=== PATIENT | male | born 1950 | race American Indian/Alaskan Native ===

== ENCOUNTER 2021-01-30 10:18 | Inpatient (IN) | payer MEDICARE ==
--- NOTE | 2021-01-31 08:44 | History and Physical Report ---
GP History & Physical - History of Present Illness Date of admission: 01/30/21 Date of Examination: 01/31/21 Reason for Admission: Danger to self History of Present Illness: Per ER Note: Present to ER for intentional overdose eight of Unisom 25 mg. Pt reports he has lost quiet a few friends lately and has not been able to sleep for four days. Poison Control was contacted and they recommend observation for 6 hours. During my interview with 71y/o Junior Smith, he is lying in bed he is slightly irritable. He never opens his eyes to look at me. The patient states he was brought to the hospital for overdose. He says he doesn't want to live. He verbalizes anxiety and "feels like I want to crack up." He is asking if he can sign himself out. He says "I don't feel like doing that group." The patient denies hallucinations. The patient denies any illicit drug use or alcohol. He says he smokes a ppd of cigarets. Psychiatric History Diagnoses: Depression Suicidal attempts: Denies Psych admissions: Yes Medications tried: Could not recall Substance abuse: Denies Outpatient care: yes Medical history: None reported Family psych history: None reported Social History Marital status: Living arrangements: Alone Highest education: high school Legal history: Denies Employment status: Disabled REVIEW OF SYSTEMS Constitutional: Negative for weight loss ENT: Negative for stridor Respiratory: Negative for cough or hemoptysis All other systems reviewed and are negative MENTAL STATUS EXAMINATION General Appearance and Behavior: Age appropriate, good hygiene, wearing appropriate clothes,poor eye contact, very anxious Cooperation: Participating/engaged, but Guarded Psychomotor Behavior: Psychomotor normal Mood: "anxious, feels like I'm cracking up" Affect and affective range: congruent with mood. Thought Process: Goal directed Thought Content: hopelessness, helplessness, SI Speech: Normal rate, volume and rhythm Suicidal Ideation: Yes Homicidal Ideation: Denies Hallucinations: Denies Delusions: None elicited Impulse Control: Impaired Insight and Judgment: Limited insight and judgment Memory: Normal Attention: Normal Orientation: Alert, oriented. Assessment and Plan (1)Major Depressive Disorder (2) Generalized Anxiety Disorder Current Visit: Yes Status: Acute Treatment Plan Patient admitted for inpatient psychiatric evaluation, medication adjustment and close monitoring The patient's behavior, mood, sleep and appetite will be closely monitored. Patient enrolled in individual and group therapeutic sessions and encouraged to attend. Patient provided with a safe and structured environment. Patient's physical health needs will be addressed by the Hospitalist. Hospitalist Consulted Labs including CBC, CMP, Lipid profile and Hemoglobin A1C levels ordered for baseline reference Social Assessment will be completed and the Computer Technology Trainer will work with patient and family to ensure a suitable and safe disposition Medication adjustment will be made as clinically indicated Continued home medications Started Depakote DR 125mg po BID Started Vistaril 25mg po BID Started Trazodone 50mg po qhs Usual Wellness Sikhism/Preservation: - Start Trazodone 50 mg po QHS & 50 mg po QHS PRN between 10 PM & 2 AM for insomnia - Start Melatonin 5 mg po QHS to promote circadian rhythm - Start [place]-3 for brain health, reduce impulsivity, and as adjunctive treatment for mood disorder, continue upon discharge given overall benefits. - Start B1 prophylaxis with 200 mg po for 5 days The patient agreed on the treatment plan, understood the risk, benefit, alternative treatment, potential consequence of no treatment, and gave informed consent. Estimated days: 7 Post hospital care: primary care provider, psychiatric provider Legal Status: Voluntary Reaction to Hospitalization: Accepting Medications and Allergies Allergies Allergy/AdvReac Type Severity Reaction Status Date / Time aspirin Allergy Unknown Unverified 01/30/21 10:43 Penicillins Allergy Unknown Unverified 01/30/21 10:44 Home Medications Medication Instructions Recorded Confirmed Last Taken Type Melatonin [Melatonin 5MG CAP] 5 mg PO QHS 01/30/21 01/30/21 Unknown History OLANZapine [Zyprexa] 5 mg PO DAILY 01/30/21 01/30/21 Unknown History OLANzapine [Zyprexa] 10 mg PO QHS 01/30/21 01/30/21 Unknown History Results - Results Labs/Vitals: Laboratory Last Values POC Glucose 127 mg/dL (70-105) H 01/31/21 01:16 Last Vital Signs Temp 98.3 F 01/30/21 23:44 Pulse 84 01/30/21 23:44 Resp 18 01/30/21 23:44 BP 121/87 01/30/21 23:44 Pulse Ox 99 01/30/21 23:44 Physical Examination - Constitutional Vitals: Vital Signs Temp Pulse Resp BP Pulse Ox 98.3 F 84 18 121/87 99 01/30/21 23:44 01/30/21 23:44 01/30/21 23:44 01/30/21 23:44 01/30/21 23:44 Temperature -Last 24 Hours Temperature 98.3 F Mental Status Exam - Vital signs Last Vital Signs Temp 98.3 F 01/30/21 23:44 Pulse 84 01/30/21 23:44 Resp 18 01/30/21 23:44 BP 121/87 01/30/21 23:44 Pulse Ox 99 01/30/21 23:44 Physician Certification - Certification Statement Physician Certification Statement: This is an acknowledgement statement that JUNIOR TRAVON HARTMAN is a 71 year old M who requires inpatient psychiatric admission for treatment which could reasonably be expected to improve the patient's condition for Estimated period of time patient will need to remain in the hospital: [ ] Plan for post-hospital care: [ ]
[2021-01-31] MEDS: hydrOXYzine PAMOATE 25 MG CAP PO SCH ×2 (10:03→21:43)
[2021-01-31] MEDS: DIVALPROEX DR 125 MG TAB PO SCH ×2 (10:03→21:43)
--- NOTE | 2021-01-31 20:43 | Consultation ---
History of Present Illness - Reason for Consult Consult date: 01/31/21 Medical management Requesting physician: JOSE STALLWORTH - History of Present Illness 71 YO Male with Obesity, Vascular Dementia with Behavioral Disturbance, Cerebral Atherosclerosis, HTN, HLD, Hypothyroidism, DM, NATALI, Depression admitted to [facility] for Psychiatric Stabilization. Consult placed by Dr. Stallworth for medical management. Patient seen and evaluated in the recreation room. Patient resting comfortably and denies complaints. Patient denies fever, chills, chest pain, palpitation, productive cough, skin rash, recent ill contacts, or known exposure to COVID-19. No reported nursing events. Patient cooperative with exam and interview. Past History Past Medical History: diabetes, hypertension, hyperlipidemia, hypothyroidism Past Surgical History: No surgical history, Other (Reviewed) Social history: . denies: smoking, alcohol abuse, prescription drug abuse Family history: diabetes, hypertension Medications and Allergies Allergies Allergy/AdvReac Type Severity Reaction Status Date / Time aspirin Allergy Unknown Unverified 01/30/21 10:43 Penicillins Allergy Unknown Unverified 01/30/21 10:44 Home Medications Medication Instructions Recorded Confirmed Last Taken Type Melatonin [Melatonin 5MG CAP] 5 mg PO QHS 01/30/21 01/30/21 Unknown History OLANZapine [Zyprexa] 5 mg PO DAILY 01/30/21 01/30/21 Unknown History OLANzapine [Zyprexa] 10 mg PO QHS 01/30/21 01/30/21 Unknown History Active Meds: Active Medications Divalproex Sodium (Divalproex Dr 125 Mg Tab) 125 mg PO BID [facility] Last Admin: 01/31/21 10:03 Dose: 125 mg Documented by: Hydroxyzine Pamoate (Hydroxyzine Pamoate 25 Mg Cap) 25 mg PO BID [facility] Last Admin: 01/31/21 10:03 Dose: 25 mg Documented by: Melatonin (Melatonin 5 Mg Tab) 5 mg PO QHS [facility] Olanzapine (Olanzapine 10 Mg Tab) 10 mg PO QHS [facility] Olanzapine (Olanzapine 5 Mg Tab) 5 mg PO DAILY [facility] Last Admin: 01/31/21 10:03 Dose: 5 mg Documented by: Trazodone HCl (Trazodone 50 Mg Tab) 50 mg PO QHS [facility] Review of Systems Constitutional: no weight loss, no weight gain, no fever, no chills Ears, nose, mouth and throat: no ear pain, no ear discharge, no tinnitis, no decreased hearing, no nose pain Cardiovascular: no chest pain, no orthopnea, no rapid/irregular heart beat, no edema, no syncope Respiratory: no cough, no cough with sputum, no excessive sputum, no hemoptysis, no shortness of breath Gastrointestinal: no abdominal pain, no nausea, no vomiting, no diarrhea, no constipation Genitourinary Male: no hematuria, no flank pain, no discharge, no urinary frequency, no urinary hesitancy Rectal: no pain, no incontinence, no bleeding Musculoskeletal: no neck stiffness, no neck pain, no shooting arm pain, no low back pain, no shooting leg pain Integumentary: no rash, no pruritis, no sores, no wounds, no jaundice Neurological: no head injury, no paralysis, no weakness, no numbness, no tingling, no seizures, no syncope Psychiatric: no anxiety, no memory loss, no change in sleep habits, no insomnia, no hypersomnia, no change in appetite Endocrine: no cold intolerance, no polyphagia, no excessive thirst, no polydipsia, no polyuria, no excessive sweating Hematologic/Lymphatic: no easy bruising, no easy bleeding, no lymphadenopathy, no lymphedema Allergic/Immunologic: no urticaria, no wheezing, no anaphylaxis Exam - Constitutional Vitals: Temp Pulse Resp BP Pulse Ox 98.0 F 68 16 124/78 99 01/31/21 12:02 01/31/21 12:02 01/31/21 12:02 01/31/21 12:02 01/31/21 12:02 General appearance: Present: no acute distress, obese - EENT Eyes: Present: PERRL ENT: hearing intact, clear oral mucosa - Neck Neck: Present: supple, normal ROM - Respiratory Respiratory effort: normal Respiratory: bilateral: CTA - Cardiovascular Heart Sounds: Present: S1 & S2. Absent: rub, click - Extremities Extremities: pulses symmetrical, No edema Peripheral Pulses: within normal limits - Abdominal General gastrointestinal: Present: soft, non-tender, non-distended, normal bowel sounds Male genitourinary: Present: normal - Integumentary Integumentary: Present: clear, warm, dry - Musculoskeletal Musculoskeletal: gait normal, strength equal bilaterally - Psychiatric Psychiatric: appropriate mood/affect, intact judgment & insight, agitated - Neurologic Neurologic: CNII-XII intact, moves all extremities Results - Labs Labs: Abnormal lab results 01/31/21 Range/Units 01:16 POC Glucose 127 H (70-105) mg/dL Assessment and Plan - Patient Problems (1) Hypertension Current Visit: Yes Status: Acute Qualifiers: Hypertension type: essential hypertension Qualified Code(s): I10 - Essenti al (primary) hypertension Plan to address problem: Monitor blood pressure every shift, continue medical management. Patient normotensive at this time. (2) Hyperlipidemia Current Visit: Yes Status: Acute Qualifiers: Hyperlipidemia type: mixed hyperlipidemia Qualified Code(s): E78.2 - Mixed hyperlipidemia Plan to address problem: Low-cholesterol diet, supportive care, risk factor reduction. (3) Hypothyroidism Current Visit: Yes Status: Acute Qualifiers: Hypothyroidism type: unspecified Qualified Code(s): E03.9 - Hypothyroidism, unspecified Plan to address problem: Continue to monitor, follow-up with primary care physician at discharge. (4) Vascular dementia with behavioral disturbance Current Visit: Yes Status: Acute Plan to address problem: Verbal prompting, verbal redirection, benzodiazepine therapy as clinically indicated. (5) Cerebral atherosclerosis Current Visit: Yes Status: Acute Plan to address problem: Risk factor reduction therapy, antiplatelet therapy as clinically indicated.
[2021-01-31] MEDS: traZODone 50 MG TAB PO SCH (21:43)
[2021-01-31] MEDS: MELATONIN 5 MG TAB PO SCH (21:44)
[2021-01-31] MEDS ORDERED: NON-FORMULARY EACH (Melatonin [Melatonin 5mg Cap] 5 MG Capsule) PO SCH (22:00)
--- NOTE | 2021-02-01 08:48 | Progress Note ---
Subjective Date of service: 02/01/21 Principal diagnosis: MDD Subjective Comment: The patient was seen today. He is irritable and says he wants to sign out. The patient denies hallucinations, but verbalizes suicidal thoughts at times then says "it's because I want to get out of here." He verbalizes feeling anxious. REVIEW OF SYSTEMS Constitutional: Negative for weight loss ENT: Negative for stridor Respiratory: Negative for cough or hemoptysis All other systems reviewed and are negative MENTAL STATUS EXAMINATION General Appearance and Behavior: Age appropriate, good hygiene, wearing appropriate clothes, poor eye contact, very anxious Cooperation: Participating/engaged, but Guarded Psychomotor Behavior: Psychomotor normal Mood: "anxious" Affect and affective range: congruent with mood. Thought Process: Goal directed Thought Content: hopelessness, helplessness, SI Speech: Normal rate, volume and rhythm Suicidal Ideation: Yes Homicidal Ideation: Denies Hallucinations: Denies Delusions: None elicited Impulse Control: Impaired Insight and Judgment: Limited insight and judgment Memory: Normal Attention: Normal Orientation: Alert, oriented. Assessment and Plan (1)Major Depressive Disorder (2) Generalized Anxiety Disorder Current Visit: Yes Status: Acute Treatment Plan Patient admitted for inpatient psychiatric evaluation, medication adjustment and close monitoring The patient's behavior, mood, sleep and appetite will be closely monitored. Patient enrolled in individual and group therapeutic sessions and encouraged to attend. Patient provided with a safe and structured environment. Patient's physical health needs will be addressed by the Hospitalist. Hospitalist Consulted Labs including CBC, CMP, Lipid profile and Hemoglobin A1C levels ordered for baseline reference Social Assessment will be completed and the Assistant Customer Service Manager will work with patient and family to ensure a suitable and safe disposition Medication adjustment will be made as clinically indicated Increase Depakote DR 250mg po BID Usual Wellness Rastafari/Preservation: - Start Trazodone 50 mg po QHS & 50 mg po QHS PRN between 10 PM & 2 AM for insomnia - Start Melatonin 5 mg po QHS to promote circadian rhythm - Start [place]-3 for brain health, reduce impulsivity, and as adjunctive treatment for mood disorder, continue upon discharge given overall benefits. - Start B1 prophylaxis with 200 mg po for 5 days The patient agreed on the treatment plan, understood the risk, benefit, alternative treatment, potential consequence of no treatment, and gave informed consent. Estimated days: 5 Post hospital care: primary care provider, psychiatric provider Medications and Allergies Allergies Allergy/AdvReac Type Severity Reaction Status Date / Time aspirin Allergy Unknown Unverified 01/30/21 10:43 Penicillins Allergy Unknown Unverified 01/30/21 10:44 Home Medications Medication Instructions Recorded Confirmed Last Taken Type Melatonin [Melatonin 5MG CAP] 5 mg PO QHS 01/30/21 01/30/21 Unknown History OLANZapine [Zyprexa] 5 mg PO DAILY 01/30/21 01/30/21 Unknown History OLANzapine [Zyprexa] 10 mg PO QHS 01/30/21 01/30/21 Unknown History Active Meds: Active Medications Divalproex Sodium (Divalproex Dr 125 Mg Tab) 125 mg PO BID [facility] Last Admin: 01/31/21 21:43 Dose: 125 mg Documented by: Hydroxyzine Pamoate (Hydroxyzine Pamoate 25 Mg Cap) 25 mg PO BID [facility] Last Admin: 01/31/21 21:43 Dose: 25 mg Documented by: Melatonin (Melatonin 5 Mg Tab) 5 mg PO QHS [facility] Last Admin: 01/31/21 21:44 Dose: 5 mg Documented by: Olanzapine (Olanzapine 10 Mg Tab) 10 mg PO QHS [facility] Last Admin: 01/31/21 21:43 Dose: 10 mg Documented by: Olanzapine (Olanzapine 5 Mg Tab) 5 mg PO DAILY [facility] Last Admin: 01/31/21 10:03 Dose: 5 mg Documented by: [facility]odone HCl ([facility] 50 Mg Tab) [facility] Admin: 01/31/21 21:43 Dose: 50 mg Documented by: Results - Results Labs/Vitals: Laboratory Last Values POC Glucose 100 mg/dL (70-105) 02/01/21 07:30 Last Vital Signs Temp 98.1 F 02/01/21 08:22 Pulse 71 02/01/21 08:22 Resp 20 02/01/21 08:22 BP 103/65 02/01/21 08:22 Pulse Ox 97 02/01/21 08:22
[2021-02-01] MEDS: hydrOXYzine PAMOATE 25 MG CAP PO SCH ×2 (10:39→21:20)
[2021-02-01] MEDS: DIVALPROEX DR 250 MG TAB PO SCH ×2 (10:39→21:20)
[2021-02-01] MEDS: NICOTINE 21 MG/24 HR PATCH TD SCH (13:45)
--- NOTE | 2021-02-01 20:04 | Progress Note ---
Assessment and Plan - Patient Problems (1) Vascular dementia with behavioral disturbance Current Visit: Yes Status: Acute Plan to address problem: Verbal prompting, verbal redirection, benzodiazepine therapy as clinically indicated. (2) Hypertension Current Visit: Yes Status: Acute Qualifiers: Hypertension type: essential hypertension Qualified Code(s): I10 - Essential (primary) hypertension Plan to address problem: Monitor blood pressure every shift, continue medical management. Patient nor motensive at this time. (3) Hyperlipidemia Current Visit: Yes Status: Acute Qualifiers: Hyperlipidemia type: mixed hyperlipidemia Qualified Code(s): E78.2 - Mixed hyperlipidemia Plan to address problem: Low-cholesterol diet, supportive care, risk factor reduction. (4) Hypothyroidism Current Visit: Yes Status: Acute Qualifiers: Hypothyroidism type: unspecified Qualified Code(s): E03.9 - Hypothyroidism, unspecified Plan to address problem: Continue to monitor, follow-up with primary care physician at discharge. (5) Cerebral atherosclerosis Current Visit: Yes Status: Acute Plan to address problem: Risk factor reduction therapy, antiplatelet therapy as clinically indicated. History Interval history: 71 YO Male with Obesity, Vascular Dementia with Behavioral Disturbance, Cerebral Atherosclerosis, HTN, HLD, Hypothyroidism, DM, NATALI, Depression admitted to [facility] for Psychiatric Stabilization. Patient seen and evaluated in the recreation room. Patient resting comfortably and denies complaints. No reported nursing events. Patient cooperative with exam and interview. Hospitalist Physical - Constitutional Vitals: Temp Pulse Resp BP Pulse Ox 98.1 F 71 20 103/65 97 02/01/21 08:22 02/01/21 08:22 02/01/21 08:22 02/01/21 08:22 02/01/21 08:22 General appearance: Present: no acute distress, obese - EENT Eyes: Present: PERRL, EOM intact ENT: hearing intact - Neck Neck: Present: supple - Respiratory Respiratory effort: normal Respiratory: bilateral: CTA - Cardiovascular Rhythm: regular Heart Sounds: Present: S1 & S2 - Extremities Extremities: no ischemia Peripheral Pulses: within normal limits - Abdominal General gastrointestinal: soft, non-tender, non-distended - Integumentary Integumentary: Present: clear, dry - Psychiatric Psychiatric: cooperative - Neurologic Neurologic: CNII-XII intact Results - Labs Labs: Laboratory Last Values POC Glucose 178 mg/dL (70-105) H 02/01/21 16:13 Gutierrez/IV: Voiding Method Toilet Active Medications - Current Medications Current Medications: Generic Name Dose Route Start Last Admin Trade Name Rene PRN Reason Stop Dose Admin Divalproex Sodium 250 mg 02/01/21 10:00 02/01/21 10:[address] 250 Mg Tab PO 250 mg BID OMAYRA Administration Hydroxyzine Pamoate 25 mg 01/31/21 10:00 02/01/21 10:39 Hydroxyzine Pamoate 25 Mg Cap PO 25 mg BID OMAY[facility] Administration Melatonin 5 mg 01/31/21 22:00 01/31/21 21:44 Melatonin 5 Mg Tab PO 5 mg QHS OMAYRA Administration Nicotine 21 mg 02/01/21 13:00 02/01/21 13:45 Nicotine 21 Mg/24 Hr Patch TD 21 mg QDAY OMAYRA Administration Olanzapine 10 mg 01/31/21 22:00 01/31/21 21:43 Olanzapine 10 Mg Tab PO 10 mg QHS OMAYRA Administration Olanzapine 5 mg 01/31/21 10:00 02/01/21 10:39 Olanzapine 5 Mg Tab PO 5 mg DAILY OMAYRA Administration Trazodone HCl 50 mg 01/31/21 22:00 01/31/21 21:43 Trazodone 50 Mg Tab PO 50 mg QHS OMAYRA Administration
[2021-02-01] MEDS: traZODone 50 MG TAB PO SCH (21:20)
[2021-02-01] MEDS: MELATONIN 5 MG TAB PO SCH (21:20)
[2021-02-02 06:03] LABS: Basophils # (Auto) 0.1 K/mm3 (0.0-0.1); Basophils % (Auto) 0.7 % (0.0-1.8); Eosinophils # (Auto) 0.2 K/mm3 (0.0-0.4); Eosinophils % (Auto) 2.4 % (0.0-4.3); Hematocrit 35.8 % (35.5-45.6); Hemoglobin 12.1 gm/dl (11.8-15.2); Lymphocytes # (Auto) 2.2 K/mm3 (1.2-5.4); Lymphocytes % (Auto) 24.3 % (13.4-35.0); Mean Corpuscular HGB Conc 34 % (32-34); Mean Corpuscular Volume 85 fl (84-94); Monocytes # (Auto) 0.8 K/mm3 (0.0-0.8); Platelet Count 264 K/mm3 (140-440); Red Cell Distribution Width 13.3 % (13.2-15.2)
[2021-02-02 06:22] LABS: Alanine Aminotransferase 19 units/L (7-56); Albumin 3.8 g/dL (3.9-5); BUN/Creatinine Ratio 16; Blood Urea Nitrogen 14 mg/dL (9-20); Calcium 9.3 mg/dL (8.4-10.2); Chol/HDL Ratio 5.71 %; HDL Cholesterol 28 mg/dL (40-59); Hemolysis Index 5; LDL Cholesterol,Direct 111 mg/dL (50-130)
--- NOTE | 2021-02-02 08:02 | Progress Note ---
Subjective Date of service: 02/02/21 Principal diagnosis: MDD Subjective Comment: Per ED Note: Patient was awake and complaining of restlessness. He states he thinks it is his medication and he states he is not going to take it. He was awake asking for snacks until 2 am. He slept continually 4 hours. The patient was seen today. He is irritable and says he want's to lay down. The patient says "I don't feel too good." He says "I didn't get any sleep last night. My mind was racing." The patient denies SI/HI, but states he feels like he's "cracking up." He says "I feel up and down." When asking the patient did he mean his mood, he replied "like I'm up and down, anxious or something. I think it might be the medication." REVIEW OF SYSTEMS Constitutional: Negative for weight loss ENT: Negative for stridor Respiratory: Negative for cough or hemoptysis All other systems reviewed and are negative MENTAL STATUS EXAMINATION General Appearance and Behavior: Age appropriate, good hygiene, wearing appropriate clothes, poor eye contact, very anxious Cooperation: Participating/engaged, but Guarded Psychomotor Behavior: Psychomotor normal Mood: "anxious, up and down, cracking up" Affect and affective range: congruent with mood, irritable Thought Process: Goal directed Thought Content: none Speech: Normal rate, volume and rhythm Suicidal Ideation: Denies Homicidal Ideation: Denies Hallucinations: Denies Delusions: None elicited Impulse Control: Impaired Insight and Judgment: Limited insight and judgment Memory: Normal Attention: Normal Orientation: Alert, oriented. Assessment and Plan (1)Major Depressive Disorder (2) Generalized Anxiety Disorder Current Visit: Yes Status: Acute Treatment Plan Patient admitted for inpatient psychiatric evaluation, medication adjustment and close monitoring The patient's behavior, mood, sleep and appetite will be closely monitored. Patient enrolled in individual and group therapeutic sessions and encouraged to attend. Patient provided with a safe and structured environment. Patient's physical health needs will be addressed by the Hospitalist. Bertrand solorzano Consulted Labs including CBC, CMP, Lipid profile and Hemoglobin A1C levels ordered for baseline reference Social Assessment will be completed and the Plastics Nurse will work with patient and family to ensure a suitable and safe disposition Medication adjustment will be made as clinically indicated Decrease Depakote DR 125mg po BID (the patient feels like he's having SE from it) Increase home Olanzapine 10mg po BID Increase Trazodone 100mg po qhs Increased Vistaril 50mg p BID Usual Wellness Hinduism/Preservation: - Start Trazodone 50 mg po QHS & 50 mg po QHS PRN between 10 PM & 2 AM for insomnia - Start Melatonin 5 mg po QHS to promote circadian rhythm - Start [place]-3 for brain health, reduce impulsivity, and as adjunctive treatment for mood disorder, continue upon discharge given overall benefits. - Start B1 prophylaxis with 200 mg po for 5 days The patient agreed on the treatment plan, understood the risk, benefit, alternative treatment, potential consequence of no treatment, and gave informed consent. Estimated days: 5 Post hospital care: primary care provider, psychiatric provider Medications and Allergies Allergies Allergy/AdvReac Type Severity Reaction Status Date / Time aspirin Allergy Unknown Unverified 01/30/21 10:43 Penicillins Allergy Unknown Unverified 01/30/21 10:44 Home Medications Medication Instructions Recorded Confirmed Last Taken Type Melatonin [Melatonin 5MG CAP] 5 mg PO QHS 01/30/21 01/30/21 Unknown History OLANZapine [Zyprexa] 5 mg PO DAILY 01/30/21 01/30/21 Unknown History OLANzapine [Zyprexa] 10 mg PO QHS 01/30/21 01/30/21 Unknown History Active Meds: Active Medications Divalproex Sodium (Divalproex Dr 250 Mg Tab) 250 mg PO BID [facility] Last Admin: 02/01/21 21:20 Dose: 250 mg Documented by: Hydroxyzine Pamoate (Hydroxyzine Pamoate 25 Mg Cap) 25 mg PO BID [facility] Last Admin: 02/01/21 21:20 Dose: 25 mg Documented by: Melatonin (Melatonin 5 Mg Tab) 5 mg PO QHS [facility] Last Admin: 02/01/21 21:20 Dose: 5 mg Documented by: Nicotine (Nicotine 21 Mg/24 Hr Patch) 21 mg TD QDAY [facility] Last Admin: 02/01/21 13:45 Dose: 21 mg Documented by: Olanzapine (Olanzapine 10 Mg Tab) 10 mg PO QHS [facility] Last Admin: 02/01/21 21:20 Dose: 10 mg Documented by: Olanzapine (Olanzapine 5 Mg Tab) 5 mg PO DAILY [facility] Last Admin: 02/01/21 10:39 Dose: 5 mg Documented by: Trazodone HCl (Trazodone 50 Mg Tab) 50 mg PO QHS [facility] Last Admin: 02/01/21 21:20 Dose: 50 mg Documented by: Results - Results Labs/Vitals: Laboratory Last Values WBC 8.9 K/mm3 (4.5-11.0) 02/02/21 05:33 RBC 4.20 M/mm3 (3.65-5.03) 02/02/21 05:33 Hgb 12.1 gm/dl (11.8-15.2) 02/02/21 05:33 Hct 35.8 % (35.5-45.6) 02/02/21 05:33 MCV 85 fl (84-94) 02/02/21 05:33 MCH 29 pg (28-32) 02/02/21 05:33 MCHC 34 % (32-34) 02/02/21 05:33 RDW 13.3 % (13.2-15.2) 02/02/21 05:33 Plt Count 264 K/mm3 (140-440) 02/02/21 05:33 Lymph % (Auto) 24.3 % (13.4-35.0) 02/02/21 05:33 [place] % (Auto) 9.0 % (0.0-7.3) H 02/02/21 05:33 Eos % (Auto) 2.4 % (0.0-4.3) 02/02/21 05:33 Baso % (Auto) 0.7 % (0.0-1.8) 02/02/21 05:33 Lymph # (Auto) 2.2 K/mm3 (1.2-5.4) 02/02/21 05:33 [place] # (Auto) 0.8 K/mm3 (0.0-0.8) 02/02/21 05:33 Eos # (Auto) 0.2 K/mm3 (0.0-0.4) 02/02/21 05:33 Baso # (Auto) 0.1 K/mm3 (0.0-0.1) 02/02/21 05:33 Seg Neutrophils % 63.6 % (40.0-70.0) 02/02/21 05:33 Seg Neutrophils # 5.7 K/mm3 (1.8-7.7) 02/02/21 05:33 Sodium 134 mmol/L (137-145) L 02/02/21 05:33 Potassium 4.2 mmol/L (3.6-5.0) 02/02/21 05:33 Chloride 101.0 mmol/L (98-107) 02/02/21 05:33 Carbon Dioxide 25 mmol/L (22-30) 02/02/21 05:33 Anion Gap 12 mmol/L 02/02/21 05:33 BUN 14 mg/dL (9-20) 02/02/21 05:33 Creatinine 0.9 mg/dL (0.8-1.3) 02/02/21 05:33 Estimated GFR > 60 ml/min 02/02/21 05:33 BUN/Creatinine Ratio 16 % 02/02/21 05:33 Glucose 141 mg/dL (75-100) H 02/02/21 05:33 POC Glucose 116 mg/dL (70-105) H 02/02/21 06:18 Hemoglobin A1c 7.5 % (4-6) H 02/02/21 05:33 Calcium 9.3 mg/dL (8.4-10.2) 02/02/21 05:33 Total Bilirubin < 0.20 mg/dL (0.1-1.2) 02/02/21 05:33 AST 15 units/L (5-40) 02/02/21 05:33 ALT 19 units/L (7-56) 02/02/21 05:33 Alkaline Phosphatase 102 units/L (35-129) 02/02/21 05:33 Total Protein 7.3 g/dL (6.3-8.2) 02/02/21 05:33 Albumin 3.8 g/dL (3.9-5) L 02/02/21 05:33 Albumin/Globulin Ratio 1.1 % 02/02/21 05:33 Triglycerides 256 mg/dL (2-149) H 02/02/21 05:33 Cholesterol 160 mg/dL (50-199) 02/02/21 05:33 LDL Cholesterol Direct 111 mg/dL (50-130) 02/02/21 05:33 HDL Cholesterol 28 mg/dL (40-59) L 02/02/21 05:33 Cholesterol/HDL Ratio 5.71 % 02/02/21 05:33 TSH 1.710 mlU/mL (0.270-4.200) 02/02/21 05:33 Last Vital Signs Temp 98.0 F 02/01/21 22:00 Pulse 79 02/01/21 22:00 Resp 18 02/01/21 22:00 BP 102/64 02/01/21 22:00 Pulse Ox 99 02/01/21 22:00
[2021-02-02] MEDS: DIVALPROEX DR 125 MG TAB PO SCH ×2 (14:15→21:00)
[2021-02-02] MEDS: NICOTINE 21 MG/24 HR PATCH TD SCH (14:15)
[2021-02-02] MEDS: MELATONIN 5 MG TAB PO SCH (21:00)
[2021-02-02] MEDS: traZODone 100 MG TAB PO SCH (21:00)
--- NOTE | 2021-02-03 11:03 | Progress Note ---
Subjective Date of service: 02/03/21 Principal diagnosis: MDD Subjective Comment: Psych Progress Patient seen this a.m., patient reported does not like his medication and does not want to take this medication because every time he takes them, he keeps having a sensation like he is very high, makes him screaming more paranoid. He denies any suicidal ideation, denies any auditory or visual hallucinations but he is seeking pain and Ativan medication. \\ REVIEW OF SYSTEMS Constitutional: Negative for weight loss ENT: Negative for stridor Respiratory: Negative for cough or hemoptysis All other systems reviewed and are negative MENTAL STATUS EXAMINATION General Appearance and Behavior: Age appropriate, good hygiene, wearing appropriate clothes, poor eye contact, very anxious Cooperation: Participating/engaged, but Guarded Psychomotor Behavior: Psychomotor normal Mood: "anxious, up and down, cracking up" Affect and affective range: congruent with mood, irritable Thought Process: Goal directed Thought Content: none Speech: Normal rate, volume and rhythm Suicidal Ideation: Denies Homicidal Ideation: Denies Hallucinations: Denies Delusions: None elicited Impulse Control: Impaired Insight and Judgment: Limited insight and judgment Memory: Normal Attention: Normal Orientation: Alert, oriented. Assessment and Plan (1)Major Depressive Disorder (2) Generalized Anxiety Disorder Current Visit: Yes Status: Acute Treatment Plan Patient admitted for inpatient psychiatric evaluation, medication adjustment and close monitoring The patient's behavior, mood, sleep and appetite will be closely monitored. Patient enrolled in individual and group therapeutic sessions and encouraged to attend. Patient provided with a safe and structured environment. Patient's physical health needs will be addressed by the Hospitalist. Hospitalist Consulted Labs including CBC, CMP, Lipid profile and Hemoglobin A1C levels ordered for baseline reference Social Assessment will be completed and the Poultry Field Service Technician will work with patient and family to ensure a suitable and safe disposition Medication adjustment will be made as clinically indicated Decrease Depakote DR 125mg po BID (the patient feels like he's having SE from it) Olanzapine discontinued Abilify started Increased Vistaril 50mg p BID Usual Wellness Yazidi/Preservation: - Start Trazodone 50 mg po QHS & 50 mg po QHS PRN between 10 PM & 2 AM for insomnia - Start Melatonin 5 mg po QHS to promote circadian rhythm - Start [place]-3 for brain health, reduce impulsivity, and as adjunctive treatment for mood disorder, continue upon discharge given overall benefits. - Start B1 prophylaxis with 200 mg po for 5 days The patient agreed on the treatment plan, understood the risk, benefit, alternative treatment, potential consequence of no treatment, and gave informed consent. Estimated days: 4 Post hospital care: primary care provider, psychiatric provider Medications and Allergies Allergies Allergy/AdvReac Type Severity Reaction Status Date / Time Penicillins Allergy Intermediate Unknown Verified 02/02/21 23:26 aspirin Allergy Mild Unknown Verified 02/02/21 23:26 Home Medications Medication Instructions Recorded Confirmed Last Taken Type Melatonin [Melatonin 5MG CAP] 5 mg PO QHS 01/30/21 01/30/21 Unknown History OLANZapine [Zyprexa] 5 mg PO DAILY 01/30/21 01/30/21 Unknown History OLANzapine [Zyprexa] 10 mg PO QHS 01/30/21 01/30/21 Unknown History Active Meds: Active Medications Divalproex Sodium (Divalproex Dr 125 Mg Tab) 125 mg PO BID [facility] Last Admin: 02/02/21 21:00 Dose: Not Given Documented by: Hydroxyzine Pamoate (Hydroxyzine Pamoate 50 Mg Cap) 50 mg PO BID [facility] Last Admin: 02/02/21 21:00 Dose: Not Given Documented by: Melatonin (Melatonin 5 Mg Tab) 5 mg PO QHS [facility] Last Admin: 02/02/21 21:00 Dose: Not Given Documented by: Nicotine (Nicotine 21 Mg/24 Hr Patch) 21 mg TD QDAY [facility] Last Admin: 02/02/21 14:15 Dose: Not Given Documented by: Olanzapine (Olanzapine 10 Mg Tab) 10 mg PO BID [facility] Last Admin: 02/02/21 21:00 Dose: Not Given Documented by: Trazodone HCl (Trazodone 100 Mg Tab) 100 mg PO QHS [facility] Last Admin: 02/02/21 21:00 Dose: Not Given Documented by: Results - Results Labs/Vitals: Laboratory Last Values WBC 8.9 K/mm3 (4.5-11.0) 02/02/21 05:33 RBC 4.20 M/mm3 (3.65-5.03) 02/02/21 05:33 Hgb 12.1 gm/dl (11.8-15.2) 02/02/21 05:33 Hct 35.8 % (35.5-45.6) 02/02/21 05:33 MCV 85 fl (84-94) 02/02/21 05:33 MCH 29 pg (28-32) 02/02/21 05:33 MCHC 34 % (32-34) 02/02/21 05:33 RDW 13.3 % (13.2-15.2) 02/02/21 05:33 Plt Count 264 K/mm3 (140-440) 02/02/21 05:33 Lymph % (Auto) 24.3 % (13.4-35.0) 02/02/21 05:33 [place] % (Auto) 9.0 % (0.0-7.3) H 02/02/21 05:33 Eos % (Auto) 2.4 % (0.0-4.3) 02/02/21 05:33 Baso % (Auto) 0.7 % (0.0-1.8) 02/02/21 05:33 Lymph # (Auto) 2.2 K/mm3 (1.2-5.4) 02/02/21 05:33 [place] # (Auto) 0.8 K/mm3 (0.0-0.8) 02/02/21 05:33 Eos # (Auto) 0.2 K/mm3 (0.0-0.4) 02/02/21 05:33 Baso # (Auto) 0.1 K/mm3 (0.0-0.1) 02/02/21 05:33 Seg Neutrophils % 63.6 % (40.0-70.0) 02/02/21 05:33 Seg Neutrophils # 5.7 K/mm3 (1.8-7.7) 02/02/21 05:33 Sodium 134 mmol/L (137-145) L 02/02/21 05:33 Potassium 4.2 mmol/L (3.6-5.0) 02/02/21 05:33 Chloride 101.0 mmol/L (98-107) 02/02/21 05:33 Carbon Dioxide 25 mmol/L (22-30) 02/02/21 05:33 Anion Gap 12 mmol/L 02/02/21 05:33 BUN 14 mg/dL (9-20) 02/02/21 05:33 Creatinine 0.9 mg/dL (0.8-1.3) 02/02/21 05:33 Estimated GFR > 60 ml/min 02/02/21 05:33 BUN/Creatinine Ratio 16 % 02/02/21 05:33 Glucose 141 mg/dL (75-100) H 02/02/21 05:33 POC Glucose 120 mg/dL (70-105) H 02/02/21 19:56 Hemoglobin A1c 7.5 % (4-6) H 02/02/21 05:33 Calcium 9.3 mg/dL (8.4-10.2) 02/02/21 05:33 Total Bilirubin < 0.20 mg/dL (0.1-1.2) 02/02/21 05:33 AST 15 units/L (5-40) 02/02/21 05:33 ALT 19 units/L (7-56) 02/02/21 05:33 Alkaline Phosphatase 102 units/L (35-129) 02/02/21 05:33 Total Protein 7.3 g/dL (6.3-8.2) 02/02/21 05:33 Albumin 3.8 g/dL (3.9-5) L 02/02/21 05:33 Albumin/Globulin Ratio 1.1 % 02/02/21 05:33 Triglycerides 256 mg/dL (2-149) H 02/02/21 05:33 Cholesterol 160 mg/dL (50-199) 02/02/21 05:33 LDL Cholesterol Direct 111 mg/dL (50-130) 02/02/21 05:33 HDL Cholesterol 28 mg/dL (40-59) L 02/02/21 05:33 Cholesterol/HDL Ratio 5.71 % 02/02/21 05:33 TSH 1.710 mlU/mL (0.270-4.200) 02/02/21 05:33 Last Vital Signs Temp 98.3 F 02/02/21 19:49 Pulse 76 02/02/21 19:49 Resp 18 02/02/21 19:49 BP 102/53 02/02/21 19:49 Pulse Ox 98 02/02/21 19:49
[2021-02-03] MEDS ORDERED: DIVALPROEX DR 125 MG TAB PO SCH (11:10)
[2021-02-03] MEDS: DIVALPROEX DR 250 MG TAB PO SCH ×2 (11:26→21:13)
[2021-02-03] MEDS: NICOTINE 21 MG/24 HR PATCH TD SCH (11:31)
[2021-02-03] MEDS: DIVALPROEX DR 125 MG TAB PO SCH (11:32)
[2021-02-03] MEDS ORDERED: ARIPiprazole 10 MG TAB PO SCH (12:00)
[2021-02-03] MEDS: QUEtiapine 100 MG TAB PO SCH (21:12)
[2021-02-03] MEDS: MELATONIN 5 MG TAB PO SCH (21:13)
[2021-02-03] MEDS: traZODone 100 MG TAB PO SCH (21:13)
--- NOTE | 2021-02-04 07:44 | Progress Note ---
Subjective Date of service: 02/04/21 Principal diagnosis: MDD Subjective Comment: Psych Nurse: pt sent the evening in bed resting with eyes closed, pt came to the activity room for his snacks, had his snack and went back to his room, pt was selective with medication, had seroquel, but refused others, pt stated that the other medication I refused make me feel weird. pt denies si/hi, denies a/v/h, good appetite, no distress noted, will continue to monitor for safety. Psych Progress Patient seen this AM, reports feeling sick by the new medication, says he his having nausea and poor appetite. Patient informed he has been complaining about all the medications provided here, he is been noncompliant with treatment. Patient say it doesnt matter anyway, he is under probation, so it either he dies at home or in [facility]. Patient states he wants to pray, puts cloth over is head and stop responding to questions. REVIEW OF SYSTEMS Constitutional: Negative for weight loss ENT: Negative for stridor Respiratory: Negative for cough or hemoptysis All other systems reviewed and are negative MENTAL STATUS EXAMINATION General Appearance and Behavior: Age appropriate, good hygiene, wearing appropriate clothes, poor eye contact, very anxious Cooperation: Participating/engaged, but Guarded Psychomotor Behavior: Psychomotor normal Mood: "irritable, feeling sick" Affect and affective range: congruent with mood, irritable Thought Process: Goal directed Thought Content: none Speech: Normal rate, volume and rhythm Suicidal Ideation: Denies Homicidal Ideation: Denies Hallucinations: Denies Delusions: None elicited Impulse Control: Impaired Insight and Judgment: Limited insight and judgment Memory: Normal Attention: Normal Orientation: Alert, oriented. Assessment and Plan (1)Major Depressive Disorder (2) Generalized Anxiety Disorder Current Visit: Yes Status: Acute Treatment Plan Will stop Valproate. Patient admitted for inpatient psychiatric evaluation, medication adjustment and close monitoring The patient's behavior, mood, sleep and appetite will be closely monitored. Patient enrolled in individual and group therapeutic sessions and encouraged to attend. Patient provided with a safe and structured environment. Patient's physical health needs will be addressed by the Hospitalist. Hosp italist Consulted Labs including CBC, CMP, Lipid profile and Hemoglobin A1C levels ordered for baseline reference Social Assessment will be completed and the Truck Rental Service Attendant will work with patient and family to ensure a suitable and safe disposition Medication adjustment will be made as clinically indicated Olanzapine discontinued Abilify started Increased Vistaril 50mg p BID Usual Wellness Buddhist/Preservation: - Start Trazodone 50 mg po QHS & 50 mg po QHS PRN between 10 PM & 2 AM for insomnia - Start Melatonin 5 mg po QHS to promote circadian rhythm - Start [place]-3 for brain health, reduce impulsivity, and as adjunctive treatment for mood disorder, continue upon discharge given overall benefits. - Start B1 prophylaxis with 200 mg po for 5 days The patient agreed on the treatment plan, understood the risk, benefit, alternative treatment, potential consequence of no treatment, and gave informed consent. Estimated days: 3 Post hospital care: primary care provider, psychiatric provider Medications and Allergies Allergies Allergy/AdvReac Type Severity Reaction Status Date / Time Penicillins Allergy Intermediate Unknown Verified 02/02/21 23:26 aspirin Allergy Mild Unknown Verified 02/02/21 23:26 Home Medications Medication Instructions Recorded Confirmed Last Taken Type Melatonin [Melatonin 5MG CAP] 5 mg PO QHS 01/30/21 01/30/21 Unknown History OLANZapine [Zyprexa] 5 mg PO DAILY 01/30/21 01/30/21 Unknown History OLANzapine [Zyprexa] 10 mg PO QHS 01/30/21 01/30/21 Unknown History Active Meds: Active Medications Divalproex Sodium (Divalproex Dr 250 Mg Tab) 250 mg PO BID [facility] Last Admin: 02/03/21 21:13 Dose: Not Given Documented by: Hydroxyzine Pamoate (Hydroxyzine Pamoate 50 Mg Cap) 50 mg PO BID PRN PRN Reason: Anxiety Melatonin (Melatonin 5 Mg Tab) 5 mg PO QHS [facility] Last Admin: 02/03/21 21:13 Dose: Not Given Documented by: Nicotine (Nicotine 21 Mg/24 Hr Patch) 21 mg TD QDAY [facility] Last Admin: 02/03/21 11:31 Dose: Not Given Documented by: Quetiapine Fumarate (Quetiapine 100 Mg Tab) 300 mg PO QHS [facility] Last Admin: 02/03/21 21:12 Dose: 300 mg Documented by: Trazodone HCl (Trazodone 100 Mg Tab) 100 mg PO QHS [facility] Last Admin: 02/03/21 21:13 Dose: Not Given Documented by: Results - Results Labs/Vitals: Laboratory Last Values WBC 8.9 K/mm3 (4.5-11.0) 02/02/21 05:33 RBC 4.20 M/mm3 (3.65-5.03) 02/02/21 05:33 Hgb 12.1 gm/dl (11.8-15.2) 02/02/21 05:33 Hct 35.8 % (35.5-45.6) 02/02/21 05:33 MCV 85 fl (84-94) 02/02/21 05:33 MCH 29 pg (28-32) 02/02/21 05:33 MCHC 34 % (32-34) 02/02/21 05:33 RDW 13.3 % (13.2-15.2) 02/02/21 05:33 Plt Count 264 K/mm3 (140-440) 02/02/21 05:33 Lymph % (Auto) 24.3 % (13.4-35.0) 02/02/21 05:33 [place] % (Auto) 9.0 % (0.0-7.3) H 02/02/21 05:33 Eos % (Auto) 2.4 % (0.0-4.3) 02/02/21 05:33 Baso % (Auto) 0.7 % (0.0-1.8) 02/02/21 05:33 Lymph # (Auto) 2.2 K/mm3 (1.2-5.4) 02/02/21 05:33 [place] # (Auto) 0.8 K/mm3 (0.0-0.8) 02/02/21 05:33 Eos # (Auto) 0.2 K/mm3 (0.0-0.4) 02/02/21 05:33 Baso # (Auto) 0.1 K/mm3 (0.0-0.1) 02/02/21 05:33 Seg Neutrophils % 63.6 % (40.0-70.0) 02/02/21 05:33 Seg Neutrophils # 5.7 K/mm3 (1.8-7.7) 02/02/21 05:33 Sodium 134 mmol/L (137-145) L 02/02/21 05:33 Potassium 4.2 mmol/L (3.6-5.0) 02/02/21 05:33 Chloride 101.0 mmol/L (98-107) 02/02/21 05:33 Carbon Dioxide 25 mmol/L (22-30) 02/02/21 05:33 Anion Gap 12 mmol/L 02/02/21 05:33 BUN 14 mg/dL (9-20) 02/02/21 05:33 Creatinine 0.9 mg/dL (0.8-1.3) 02/02/21 05:33 Estimated GFR > 60 ml/min 02/02/21 05:33 BUN/Creatinine Ratio 16 % 02/02/21 05:33 Glucose 141 mg/dL (75-100) H 02/02/21 05:33 POC Glucose 187 mg/dL (70-105) H 02/03/21 19:58 Hemoglobin A1c 7.5 % (4-6) H 02/02/21 05:33 Calcium 9.3 mg/dL (8.4-10.2) 02/02/21 05:33 Total Bilirubin < 0.20 mg/dL (0.1-1.2) 02/02/21 05:33 AST 15 units/L (5-40) 02/02/21 05:33 ALT 19 units/L (7-56) 02/02/21 05:33 Alkaline Phosphatase 102 units/L (35-129) 02/02/21 05:33 Total Protein 7.3 g/dL (6.3-8.2) 02/02/21 05:33 Albumin 3.8 g/dL (3.9-5) L 02/02/21 05:33 Albumin/Globulin Ratio 1.1 % 02/02/21 05:33 Triglycerides 256 mg/dL (2-149) H 02/02/21 05:33 Cholesterol 160 mg/dL (50-199) 02/02/21 05:33 LDL Cholesterol Direct 111 mg/dL (50-130) 02/02/21 05:33 HDL Cholesterol 28 mg/dL (40-59) L 02/02/21 05:33 Cholesterol/HDL Ratio 5.71 % 02/02/21 05:33 TSH 1.710 mlU/mL (0.270-4.200) 02/02/21 05:33 Last Vital Signs Temp 98.4 F 02/03/21 22:00 Pulse 86 02/03/21 22:00 Resp 16 02/03/21 22:00 BP 128/70 02/03/21 22:00 Pulse Ox 96 02/03/21 22:00
[2021-02-04] MEDS: DIVALPROEX DR 250 MG TAB PO SCH (09:34)
[2021-02-04] MEDS: NICOTINE 21 MG/24 HR PATCH TD SCH (09:34)
[2021-02-04] MEDS: MELATONIN 5 MG TAB PO SCH (21:38)
[2021-02-04] MEDS: QUEtiapine 100 MG TAB PO SCH (21:38)
[2021-02-04] MEDS: traZODone 100 MG TAB PO SCH (21:39)
--- NOTE | 2021-02-05 08:54 | Progress Note ---
Subjective Date of service: 02/05/21 Principal diagnosis: MDD Subjective Comment: Psych Nurse:Today the patient has been drowsy and irritable. He refused groups. He lay in bed most of the day. He refused all medications this morning. He has a good appetite. Patient still experiencing times of si but not continuous. He denies hi/ah/vh. He presents as mildly anxious. He reports the medications make him feel "up" even though he did not take them. Will continue to monitor patient for safety. Psych Progress Patient presents today reporting that he wants to go home and has been held in here because of unintentional overdose. He states he never wanted to kil self, he was having sleeping issues and took very small pill amount of unisom. He denies SI/HI and also denies AVH. Patient also wrote this provider a letter, he was organized in thought process and provided clear communication. Reason for inpatient: Will start planning for patients safety discharge tomorrow. REVIEW OF SYSTEMS Constitutional: Negative for weight loss ENT: Negative for stridor Respiratory: Negative for cough or hemoptysis All other systems reviewed and are negative MENTAL STATUS EXAMINATION General Appearance and Behavior: Age appropriate, good hygiene, wearing appropriate clothes, good eye contact, cooperative polite with questioning. Cooperation: Participating/engaged Psychomotor Behavior: unremarkable and within normal limits Mood: Good Affect and affective range: congruent with mood Thought Process: Fluent/Logical, Thought Content: Within reality, Speech: Normal volume, Regular rate and rhythm, Intellectual Functioning: Average Suicidal Ideation: Denies SI Homicidal Ideation: Denies HI Impulse Control: Unimpaired Insight and Judgment: Normal insight and judgment, Memory: Normal, Attention: Normal, Orientation: Alert, oriented, Assessment and Plan (1)Major Depressive Disorder (2) Generalized Anxiety Disorder Current Visit: Yes Status: Acute Treatment Plan Will stop Valproate. Patient admitted for inpatient psychiatric evaluation, medication adjustment and close monitoring The patient's behavior, mood, sleep and appetite will be closely monitored. Patient enrolled in individual and group therapeutic sessions and encouraged to attend. Patient provided with a safe and structured environment. Patient's physical health needs will be addressed by the Hospitalist. Hospitalist Consulted Labs including CBC, CMP, Lipid profile and Hemoglobin A1C levels ordered for baseline reference Social Assessment will be completed and the Associate Financial Analyst will work with patient and family to ensure a suitable and safe disposition Medication adjustment will be made as clinically indicated Olanzapine discontinued Abilify started Increased Vistaril 50mg p BID Usual Wellness [employer]/Preservation: - Start Trazodone 50 mg po QHS & 50 mg po QHS PRN between 10 PM & 2 AM for insomnia - Start Melatonin 5 mg po QHS to promote circadian rhythm - Start [place]-3 for brain health, reduce impulsivity, and as adjunctive treatment for mood disorder, continue upon discharge given overall benefits. - Start B1 prophylaxis with 200 mg po for 5 days The patient agreed on the treatment plan, understood the risk, benefit, alternative treatment, potential consequence of no treatment, and gave informed consent. Estimated days: 1 Post hospital care: primary care provider, psychiatric provider Medications and Allergies Allergies Allergy/AdvReac Type Severity Reaction Status Date / Time Penicillins Allergy Intermediate Unknown Verified 02/02/21 23:26 aspirin Allergy Mild Unknown Verified 02/02/21 23:26 Home Medications Medication Instructions Recorded Confirmed Last Taken Type Melatonin [Melatonin 5MG CAP] 5 mg PO QHS 01/30/21 01/30/21 Unknown History OLANZapine [Zyprexa] 5 mg PO DAILY 01/30/21 01/30/21 Unknown History OLANzapine [Zyprexa] 10 mg PO QHS 01/30/21 01/30/21 Unknown History Active Meds: Active Medications Hydroxyzine Pamoate (Hydroxyzine Pamoate 50 Mg Cap) 50 mg PO BID PRN PRN Reason: Anxiety Melatonin (Melatonin 5 Mg Tab) 5 mg PO QHS [facility] Last Admin: 02/04/21 21:38 Dose: 5 mg Documented by: Nicotine (Nicotine 21 Mg/24 Hr Patch) 21 mg TD QDAY [facility] Last Admin: 02/04/21 09:34 Dose: Not Given Documented by: Quetiapine Fumarate (Quetiapine 100 Mg Tab) 300 mg PO QHS [facility] Last Admin: 02/04/21 21:38 Dose: 300 mg Documented by: Trazodone HCl (Trazodone 100 Mg Tab) 100 mg PO QHS [facility] Last Admin: 02/04/21 21:39 Dose: 100 mg Documented by: Results - Results Labs/Vitals: Laboratory Last Values WBC 8.9 K/mm3 (4.5-11.0) 02/02/21 05:33 RBC 4.20 M/mm3 (3.65-5.03) 02/02/21 05:33 Hgb 12.1 gm/dl (11.8-15.2) 02/02/21 05:33 Hct 35.8 % (35.5-45.6) 02/02/21 05:33 MCV 85 fl (84-94) 02/02/21 05:33 MCH 29 pg (28-32) 02/02/21 05:33 MCHC 34 % (32-34) 02/02/21 05:33 RDW 13.3 % (13.2-15.2) 02/02/21 05:33 Plt Count 264 K/mm3 (140-440) 02/02/21 05:33 Lymph % (Auto) 24.3 % (13.4-35.0) 02/02/21 05:33 [place] % (Auto) 9.0 % (0.0-7.3) H 02/02/21 05:33 Eos % (Auto) 2.4 % (0.0-4.3) 02/02/21 05:33 Baso % (Auto) 0.7 % (0.0-1.8) 02/02/21 05:33 Lymph # (Auto) 2.2 K/mm3 (1.2-5.4) 02/02/21 05:33 [place] # (Auto) 0.8 K/mm3 (0.0-0.8) 02/02/21 05:33 Eos # (Auto) 0.2 K/mm3 (0.0-0.4) 02/02/21 05:33 Baso # (Auto) 0.1 K/mm3 (0.0-0.1) 02/02/21 05:33 Seg Neutrophils % 63.6 % (40.0-70.0) 02/02/21 05:33 Seg Neutrophils # 5.7 K/mm3 (1.8-7.7) 02/02/21 05:33 Sodium 134 mmol/L (137-145) L 02/02/21 05:33 Potassium 4.2 mmol/L (3.6-5.0) 02/02/21 05:33 Chloride 101.0 mmol/L (98-107) 02/02/21 05:33 Carbon Dioxide 25 mmol/L (22-30) 02/02/21 05:33 Anion Gap 12 mmol/L 02/02/21 05:33 BUN 14 mg/dL (9-20) 02/02/21 05:33 Creatinine 0.9 mg/dL (0.8-1.3) 02/02/21 05:33 Estimated GFR > 60 ml/min 02/02/21 05:33 BUN/Creatinine Ratio 16 % 02/02/21 05:33 Glucose 141 mg/dL (75-100) H 02/02/21 05:33 POC Glucose 134 mg/dL (70-105) H 02/04/21 19:48 Hemoglobin A1c 7.5 % (4-6) H 02/02/21 05:33 Calcium 9.3 mg/dL (8.4-10.2) 02/02/21 05:33 Total Bilirubin < 0.20 mg/dL (0.1-1.2) 02/02/21 05:33 AST 15 units/L (5-40) 02/02/21 05:33 ALT 19 units/L (7-56) 02/02/21 05:33 Alkaline Phosphatase 102 units/L (35-129) 02/02/21 05:33 Total Protein 7.3 g/dL (6.3-8.2) 02/02/21 05:33 Albumin 3.8 g/dL (3.9-5) L 02/02/21 05:33 Albumin/Globulin Ratio 1.1 % 02/02/21 05:33 Triglycerides 256 mg/dL (2-149) H 02/02/21 05:33 Cholesterol 160 mg/dL (50-199) 02/02/21 05:33 LDL Cholesterol Direct 111 mg/dL (50-130) 02/02/21 05:33 HDL Cholesterol 28 mg/dL (40-59) L 02/02/21 05:33 Cholesterol/HDL Ratio 5.71 % 02/02/21 05:33 TSH 1.710 mlU/mL (0.270-4.200) 02/02/21 05:33 Last Vital Signs Temp 98.2 F 02/05/21 08:15 Pulse 68 02/05/21 08:15 Resp 18 02/05/21 08:15 BP 120/70 02/05/21 08:15 Pulse Ox 95 02/05/21 08:15
[2021-02-05] MEDS: NICOTINE 21 MG/24 HR PATCH TD SCH (13:37)
[2021-02-05] MEDS: traZODone 100 MG TAB PO SCH (21:52)
[2021-02-05] MEDS: QUEtiapine 100 MG TAB PO SCH (21:52)
[2021-02-05] MEDS: MELATONIN 5 MG TAB PO SCH (21:52)
--- NOTE | 2021-02-06 07:32 | Progress Note ---
Subjective Date of service: 02/06/21 Principal diagnosis: MDD Subjective Comment: Psych Nurse:Pt received relaxing in bed. A&OX4. Denies pain. Refused to answer as top whether he is suicidal or homicidal. No AV/H observed or reported. No acute distress observed and none reported. Will closely monitor for safety. Psych Progress Patient seen this AM, reports sleeping okay, says he feels ready to go home and that his sister would pick him up. He denies SI/HI and also denies AVH. Patient also wrote this provider a letter, he was organized in thought process and provided clear communication. Reason for inpatient: Will start planning for patients safety discharge today. REVIEW OF SYSTEMS Constitutional: Negative for weight loss ENT: Negative for stridor Respiratory: Negative for cough or hemoptysis All other systems reviewed and are negative MENTAL STATUS EXAMINATION General Appearance and Behavior: Age appropriate, good hygiene, wearing appropriate clothes, good eye contact, cooperative polite with questioning. Cooperation: Participating/engaged Psychomotor Behavior: unremarkable and within normal limits Mood: Good Affect and affective range: congruent with mood Thought Process: Fluent/Logical, Thought Content: Within reality, Speech: Normal volume, Regular rate and rhythm, Intellectual Functioning: Average Suicidal Ideation: Denies SI Homicidal Ideation: Denies HI Impulse Control: Unimpaired Insight and Judgment: Normal insight and judgment, Memory: Normal, Attention: Normal, Orientation: Alert, oriented, Assessment and Plan (1)Major Depressive Disorder (2) Generalized Anxiety Disorder Current Visit: Yes Status: Acute Treatment Plan Will stop Valproate. Patient admitted for inpatient psychiatric evaluation, medication adjustment and close monitoring The patient's behavior, mood, sleep and appetite will be closely monitored. Patient enrolled in individual and group therapeutic sessions and encouraged to attend. Patient provided with a safe and structured environment. Patient's physical health needs will be addressed by the Hospitalist. Hospitalist Consulted Labs including CBC, CMP, Lipid profile and Hemoglobin A1C levels ordered for baseline reference Social Assessment will be completed and the Geodetic Engineer will work with patient and family to ensure a suitable and safe disposition Medication adjustment will be made as clinically indicated Olanzapine discontinued Abilify started Increased Vistaril 50mg p BID Usual Wellness [facility]/Preservation: - Start Trazodone 50 mg po QHS & 50 mg po QHS PRN between 10 PM & 2 AM for insomnia - Start Melatonin 5 mg po QHS to promote circadian rhythm - Start [place]-3 for brain health, reduce impulsivity, and as adjunctive treatment for mood disorder, continue upon discharge given overall benefits. - Start B1 prophylaxis with 200 mg po for 5 days The patient agreed on the treatment plan, understood the risk, benefit, alternative treatment, potential consequence of no treatment, and gave informed consent. Estimated days: 1 Post hospital care: primary care provider, psychiatric provider Medications and Allergies Allergies Allergy/AdvReac Type Severity Reaction Status Date / Time Penicillins Allergy Intermediate Unknown Verified 02/02/21 23:26 aspirin Allergy Mild Unknown Verified 02/02/21 23:26 Home Medications Medication Instructions Recorded Confirmed Last Taken Type Melatonin [Melatonin 5MG CAP] 5 mg PO QHS 01/30/21 01/30/21 Unknown History OLANZapine [Zyprexa] 5 mg PO DAILY 01/30/21 01/30/21 Unknown History OLANzapine [Zyprexa] 10 mg PO QHS 01/30/21 01/30/21 Unknown History Active Meds: Active Medications Hydroxyzine Pamoate (Hydroxyzine Pamoate 50 Mg Cap) 50 mg PO BID PRN PRN Reason: Anxiety [facility] Mg [facility] Admin: 02/05/21 21:52 Dose: 5 mg Documented by: Nicotine (Nicotine 21 Mg/24 Hr Patch) 21 mg TD QDAY [facility] Last Admin: 02/05/21 13:37 Dose: Not Given Documented by: Quetiapine Fumarate (Quetiapine 100 Mg Tab) 300 mg PO QHS [facility] Last Admin: 02/05/21 21:52 Dose: 300 mg Documented by: Trazodone HCl ([facility]one 100 Mg Tab) [facility] Last Admin: 02/05/21 21:52 Dose: 100 mg Documented by: Results - Results Labs/Vitals: Laboratory Last Values WBC 8.9 K/mm3 (4.5-11.0) 02/02/21 05:33 RBC 4.20 M/mm3 (3.65-5.03) 02/02/21 05:33 Hgb 12.1 gm/dl (11.8-15.2) 02/02/21 05:33 Hct 35.8 % (35.5-45.6) 02/02/21 05:33 MCV 85 fl (84-94) 02/02/21 05:33 MCH 29 pg (28-32) 02/02/21 05:33 MCHC 34 % (32-34) 02/02/21 05:33 RDW 13.3 % (13.2-15.2) 02/02/21 05:33 Plt Count 264 K/mm3 (140-440) 02/02/21 05:33 Lymph % (Auto) 24.3 % (13.4-35.0) 02/02/21 05:33 [place] % (Auto) 9.0 % (0.0-7.3) H 02/02/21 05:33 Eos % (Auto) 2.4 % (0.0-4.3) 02/02/21 05:33 Baso % (Auto) 0.7 % (0.0-1.8) 02/02/21 05:33 Lymph # (Auto) 2.2 K/mm3 (1.2-5.4) 02/02/21 05:33 [place] # (Auto) 0.8 K/mm3 (0.0-0.8) 02/02/21 05:33 Eos # (Auto) 0.2 K/mm3 (0.0-0.4) 02/02/21 05:33 Baso # (Auto) 0.1 K/mm3 (0.0-0.1) 02/02/21 05:33 Seg Neutrophils % 63.6 % (40.0-70.0) 02/02/21 05:33 Seg Neutrophils # 5.7 K/mm3 (1.8-7.7) 02/02/21 05:33 Sodium 134 mmol/L (137-145) L 02/02/21 05:33 Potassium 4.2 mmol/L (3.6-5.0) 02/02/21 05:33 Chloride 101.0 mmol/L (98-107) 02/02/21 05:33 Carbon Dioxide 25 mmol/L (22-30) 02/02/21 05:33 Anion Gap 12 mmol/L 02/02/21 05:33 BUN 14 mg/dL (9-20) 02/02/21 05:33 Creatinine 0.9 mg/dL (0.8-1.3) 02/02/21 05:33 Estimated GFR > 60 ml/min 02/02/21 05:33 BUN/Creatinine Ratio 16 % 02/02/21 05:33 Glucose 141 mg/dL (75-100) H 02/02/21 05:33 POC Glucose 146 mg/dL (70-105) H 02/05/21 19:35 Hemoglobin A1c 7.5 % (4-6) H 02/02/21 05:33 Calcium 9.3 mg/dL (8.4-10.2) 02/02/21 05:33 Total Bilirubin < 0.20 mg/dL (0.1-1.2) 02/02/21 05:33 AST 15 units/L (5-40) 02/02/21 05:33 ALT 19 units/L (7-56) 02/02/21 05:33 Alkaline Phosphatase 102 units/L (35-129) 02/02/21 05:33 Total Protein 7.3 g/dL (6.3-8.2) 02/02/21 05:33 Albumin 3.8 g/dL (3.9-5) L 02/02/21 05:33 Albumin/Globulin Ratio 1.1 % 02/02/21 05:33 Triglycerides 256 mg/dL (2-149) H 02/02/21 05:33 Cholesterol 160 mg/dL (50-199) 02/02/21 05:33 LDL Cholesterol Direct 111 mg/dL (50-130) 02/02/21 05:33 HDL Cholesterol 28 mg/dL (40-59) L 02/02/21 05:33 Cholesterol/HDL Ratio 5.71 % 02/02/21 05:33 TSH 1.710 mlU/mL (0.270-4.200) 02/02/21 05:33 Last Vital Signs Temp 98.6 F 02/05/21 22:52 Pulse 80 02/05/21 22:52 Resp 18 02/05/21 22:52 BP 136/77 02/05/21 22:52 Pulse Ox 100 02/05/21 22:52
--- NOTE | 2021-02-06 11:22 | Discharge Summary ---
Providers - Providers Date of Admission: 01/30/21 23:06 Date of discharge: 02/06/21 Attending physician: JOSE STALLWORTH MD 01/30/21 10:42 Consult to Physician [CONS] Routine Comment: Consulting Provider: KIRA WIN Physician Instructions: Reason For Exam: manage medical conditions Primary care physician: COURTESY CAR DRIVER Hospitalization Reason for admission: MDD Condition: Good Hospital course: The patient was provided inpatient psychiatric treatment with safe and supportive environment, group/individual therapy, psychiatric medication, medication adjustment, adverse effect monitor, medical evaluation, medical treatment, social service assessment, social support meeting, placement assessment and psycho-education. The patients mood, cognition, behavior, motivation, compliance to treatment and appreciation on family/social support are improved and stabilized. At the time of discharge, the patient had no suicidal ideas, no homicidal ideas, no aggressive thoughts, no endangering behavior and no debilitating adverse effects. The patient agareed on the treatment plan, understood the risk, benefit, alternative treatment, potential consequence of no treatment, and gave informed consent. Disposition: DC- TO HOME OR SELFCARE Allergies/Adverse Reactions: Allergies Penicillins Allergy (Intermediate, Verified 02/02/21 23:26) Unknown aspirin Allergy (Mild, Verified 02/02/21 23:26) Unknown Vital Signs: Last Vital Signs Temp 98.6 F 02/05/21 22:52 Pulse 80 02/05/21 22:52 Resp 18 02/05/21 22:52 BP 136/77 02/05/21 22:52 Pulse Ox 100 02/05/21 22:52 Last Lab: Laboratory Last Values WBC 8.9 K/mm3 (4.5-11.0) 02/02/21 05:33 RBC 4.20 M/mm3 (3.65-5.03) 02/02/21 05:33 Hgb 12.1 gm/dl (11.8-15.2) 02/02/21 05:33 Hct 35.8 % (35.5-45.6) 02/02/21 05:33 MCV 85 fl (84-94) 02/02/21 05:33 MCH 29 pg (28-32) 02/02/21 05:33 MCHC 34 % (32-34) 02/02/21 05:33 RDW 13.3 % (13.2-15.2) 02/02/21 05:33 Plt Count 264 K/mm3 (140-440) 02/02/21 05:33 Lymph % (Auto) 24.3 % (13.4-35.0) 02/02/21 05:33 [place] % (Auto) 9.0 % (0.0-7.3) H 02/02/21 05:33 Eos % (Auto) 2.4 % (0.0-4.3) 02/02/21 05:33 Baso % (Auto) 0.7 % (0.0-1.8) 02/02/21 05:33 Lymph # (Auto) 2.2 K/mm3 (1.2-5.4) 02/02/21 05:33 [place] # (Auto) 0.8 K/mm3 (0.0-0.8) 02/02/21 05:33 Eos # (Auto) 0.2 K/mm3 (0.0-0.4) 02/02/21 05:33 Baso # (Auto) 0.1 K/mm3 (0.0-0.1) 02/02/21 05:33 Seg Neutrophils % 63.6 % (40.0-70.0) 02/02/21 05:33 Seg Neutrophils # 5.7 K/mm3 (1.8-7.7) 02/02/21 05:33 Sodium 134 mmol/L (137-145) L 02/02/21 05:33 Potassium 4.2 mmol/L (3.6-5.0) 02/02/21 05:33 Chloride 101.0 mmol/L (98-107) 02/02/21 05:33 Carbon Dioxide 25 mmol/L (22-30) 02/02/21 05:33 Anion Gap 12 mmol/L 02/02/21 05:33 BUN 14 mg/dL (9-20) 02/02/21 05:33 Creatinine 0.9 mg/dL (0.8-1.3) 02/02/21 05:33 Estimated GFR > 60 ml/min 02/02/21 05:33 BUN/Creatinine Ratio 16 % 02/02/21 05:33 Glucose 141 mg/dL (75-100) H 02/02/21 05:33 POC Glucose 121 mg/dL (70-105) H 02/06/21 09:03 Hemoglobin A1c 7.5 % (4-6) H 02/02/21 05:33 Calcium 9.3 mg/dL (8.4-10.2) 02/02/21 05:33 Total Bilirubin < 0.20 mg/dL (0.1-1.2) 02/02/21 05:33 AST 15 units/L (5-40) 02/02/21 05:33 ALT 19 units/L (7-56) 02/02/21 05:33 Alkaline Phosphatase 102 units/L (35-129) 02/02/21 05:33 Total Protein 7.3 g/dL (6.3-8.2) 02/02/21 05:33 Albumin 3.8 g/dL (3.9-5) L 02/02/21 05:33 Albumin/Globulin Ratio 1.1 % 02/02/21 05:33 Triglycerides 256 mg/dL (2-149) H 02/02/21 05:33 Cholesterol 160 mg/dL (50-199) 02/02/21 05:33 LDL Cholesterol Direct 111 mg/dL (50-130) 02/02/21 05:33 HDL Cholesterol 28 mg/dL (40-59) L 02/02/21 05:33 Cholesterol/HDL Ratio 5.71 % 02/02/21 05:33 TSH 1.710 mlU/mL (0.270-4.200) 02/02/21 05:33 Core Measure Documentation - Palliative Care Palliative Care/ Comfort Measures: Not Applicable - Core Measures Any of the following diagnoses?: none Exam - Constitutional Vitals: Temp Pulse Resp BP Pulse Ox 98.6 F 80 18 136/77 100 02/05/21 22:52 02/05/21 22:52 02/05/21 22:52 02/05/21 22:52 02/05/21 22:52 General appearance: Present: no acute distress - EENT Eyes: Present: PERRL, EOM intact ENT: hearing intact, clear oral mucosa - Neck Neck: Present: supple, normal ROM - Respiratory Respiratory effort: normal - Abdominal Male genitourinary: Present: deferred Plan Care Plan Goals: Maintain good and stable mental health. Plan of Treatment: The patient should be compliant with medications, not to use drugs and not to drink alcohol. The patient understands that if suicidal ideas, homicidal ideas, or any endangering thoughts arise, the patient should immediately seek for emergent assistance including but not limited to crisis hot line and emergency room. Follow up with outpatient Psychiatrist and PCP within 7 - 14 days of discharge. Follow up with: PRIMARY CARE, [Primary Care Provider] - 7 Days
[2021-02-06] MEDS: NICOTINE 21 MG/24 HR PATCH TD SCH (12:23)
--- NOTE | 2021-02-06 13:06 | Progress Note ---
Assessment and Plan - Patient Problems (1) Vascular dementia with behavioral disturbance Current Visit: Yes Status: Acute Plan to address problem: Verbal prompting, verbal redirection, benzodiazepine therapy as clinically indicated. (2) Hypertension Current Visit: Yes Status: Acute Qualifiers: Hypertension type: essential hypertension Qualified Code(s): I10 - Essential (primary) hypertension Plan to address problem: Monitor blood pressure every shift, continue medical management. Patient nor motensive at this time. (3) Hyperlipidemia Current Visit: Yes Status: Acute Qualifiers: Hyperlipidemia type: mixed hyperlipidemia Qualified Code(s): E78.2 - Mixed hyperlipidemia Plan to address problem: Low-cholesterol diet, supportive care, risk factor reduction. (4) Hypothyroidism Current Visit: Yes Status: Acute Qualifiers: Hypothyroidism type: unspecified Qualified Code(s): E03.9 - Hypothyroidism, unspecified Plan to address problem: Continue to monitor, follow-up with primary care physician at discharge. (5) Cerebral atherosclerosis Current Visit: Yes Status: Acute Plan to address problem: Risk factor reduction therapy, antiplatelet therapy as clinically indicated. History Interval history: 71 YO Male with Obesity, Vascular Dementia with Behavioral Disturbance, Cerebral Atherosclerosis, HTN, HLD, Hypothyroidism, DM, NATALI, Depression admitted to [facility] Psychiatric Stabil[facility]. Patient seen and evaluated in the recreation room. Patient resting comfortably and denies complaints. No reported nursing events. Patient cooperative with exam and interview. Hospitalist Physical - Constitutional Vitals: Temp Pulse Resp BP Pulse Ox 99.2 F 79 18 99/59 100 02/06/21 10:02/06/21 10:02/06/21 10:02/06/21 10:02/06/21 10:09 General appearance: Present: no acute distress - EENT Eyes: Present: PERRL, EOM intact ENT: hearing intact - Neck Neck: Present: supple - Respiratory Respiratory: bilateral: CTA - Cardiovascular Rhythm: regular Heart Sounds: Present: S1 & S2 - Extremities Extremities: no ischemia Peripheral Pulses: within normal limits - Abdominal General gastrointestinal: soft, non-tender, non-distended - Integumentary Integumentary: Present: clear - Psychiatric Psychiatric: cooperative - Neurologic Neurologic: CNII-XII intact Results - Labs CBC & Chem 7: 02/02/21 05:33 02/02/21 05:33 Labs: Laboratory Last Values WBC 8.9 K/mm3 (4.5-11.0) 02/02/21 05:33 RBC 4.20 M/mm3 (3.65-5.03) 02/02/21 05:33 Hgb 12.1 gm/dl (11.8-15.2) 02/02/21 05:33 Hct 35.8 % (35.5-45.6) 02/02/21 05:33 MCV 85 fl (84-94) 02/02/21 05:33 MCH 29 pg (28-32) 02/02/21 05:33 MCHC 34 % (32-34) 02/02/21 05:33 RDW 13.3 % (13.2-15.2) 02/02/21 05:33 Plt Count 264 K/mm3 (140-440) 02/02/21 05:33 Lymph % (Auto) 24.3 % (13.4-35.0) 02/02/21 05:33 [place] % (Auto) 9.0 % (0.0-7.3) H 02/02/21 05:33 Eos % (Auto) 2.4 % (0.0-4.3) 02/02/21 05:33 Baso % (Auto) 0.7 % (0.0-1.8) 02/02/21 05:33 Lymph # (Auto) 2.2 K/mm3 (1.2-5.4) 02/02/21 05:33 [place] # (Auto) 0.8 K/mm3 (0.0-0.8) 02/02/21 05:33 Eos # (Auto) 0.2 K/mm3 (0.0-0.4) 02/02/21 05:33 Baso # (Auto) 0.1 K/mm3 (0.0-0.1) 02/02/21 05:33 Seg Neutrophils % 63.6 % (40.0-70.0) 02/02/21 05:33 Seg Neutrophils # 5.7 K/mm3 (1.8-7.7) 02/02/21 05:33 Sodium 134 mmol/L (137-145) L 02/02/21 05:33 Potassium 4.2 mmol/L (3.6-5.0) 02/02/21 05:33 Chloride 101.0 mmol/L (98-107) 02/02/21 05:33 Carbon Dioxide 25 mmol/L (22-30) 02/02/21 05:33 Anion Gap 12 mmol/L 02/02/21 05:33 BUN 14 mg/dL (9-20) 02/02/21 05:33 Creatinine 0.9 mg/dL (0.8-1.3) 02/02/21 05:33 Estimated GFR > 60 ml/min 02/02/21 05:33 BUN/Creatinine Ratio 16 % 02/02/21 05:33 Glucose 141 mg/dL (75-100) H 02/02/21 05:33 POC Glucose 121 mg/dL (70-105) H 02/06/21 09:03 Hemoglobin A1c 7.5 % (4-6) H 02/02/21 05:33 Calcium 9.3 mg/dL (8.4-10.2) 02/02/21 05:33 Total Bilirubin < 0.20 mg/dL (0.1-1.2) 02/02/21 05:33 AST 15 units/L (5-40) 02/02/21 05:33 ALT 19 units/L (7-56) 02/02/21 05:33 Alkaline Phosphatase 102 units/L (35-129) 02/02/21 05:33 Total Protein 7.3 g/dL (6.3-8.2) 02/02/21 05:33 Albumin 3.8 g/dL (3.9-5) L 02/02/21 05:33 Albumin/Globulin Ratio 1.1 % 02/02/21 05:33 Triglycerides 256 mg/dL (2-149) H 02/02/21 05:33 Cholesterol 160 mg/dL (50-199) 02/02/21 05:33 LDL Cholesterol Direct 111 mg/dL (50-130) 02/02/21 05:33 HDL Cholesterol 28 mg/dL (40-59) L 02/02/21 05:33 Cholesterol/HDL Ratio 5.71 % 02/02/21 05:33 TSH 1.710 mlU/mL (0.270-4.200) 02/02/21 05:33 Gutierrez/IV: Voiding Method Toilet Active Medications - Current Medications Current Medications: Generic Name Dose Route Start Last Admin Trade Name Freq PRN Reason Stop Dose Admin Hydroxyzine Pamoate 50 mg 02/03/21 12:00 Hydroxyzine Pamoate 50 Mg Cap PO BID PRN Anxiety Melatonin 5 mg 01/31/21 22:00 02/05/21 21:52 Melatonin 5 Mg Tab PO 5 mg QHS OMAYRA Administration Nicotine 21 mg 02/01/21 13:00 02/06/21 12:23 Nicotine 21 Mg/24 Hr Patch TD Not Given QDAY OMAYRA Quetiapine Fumarate 300 mg 02/03/21 22:00 02/05/21 21:52 Quetiapine 100 Mg Tab PO 300 mg QHS OMAYRA Administration Trazodone HCl 100 mg 02/02/21 22:00 02/05/21 21:52 Trazodone 100 Mg Tab PO 100 mg QHS OMAYRA Administration Nutrition/Malnutrition Assess - Dietary Evaluation Nutrition/Malnutrition Findings: Nutrition Notes Start: 02/06/21 08:57 Freq: Status: Active Protocol: Document 02/06/21 08:57 CW (Rec: 02/06/21 09:07 CW [id number]) Nutrition Notes Need for Assessment generated from: LOS Initial or Follow up Assessment Current Diagnosis Hypertension,Hyperlipidemia Other Pertinent Diagnosis Hypothryroidism, Dementia, Depression Current Diet Cardiac Consistent Carbohydrate Labs/Tests Reviewed Pertinent Medications BG 146 HgbA1c 7.5 (02/02/2021) Height 5 ft 11 in Weight 102.058 kg [place] Body Weight (kg) 78.18 BMI 31.4 Weight Status Obese Subjective/Other Information Screen for LOS. Pt intake is good. Bernard score of 22. No nutritional concerns at this time. Burn Absent Trauma Absent GI Symptoms None Current % PO Good (75-100%) Minimum of two criteria No physical signs of malnutrition Is patient on ventilator? No Is Patient Ambulatory and/or Out of Bed Yes REE-([place]-ambulatory/OOB) [ 2324.023 NUTR.[id number]] Kcal/Kg value to use for calculation 18 Approximate Energy Requirements Using 1837 kcal/Kg Calculation Used for Recommendations Kcal/kg Additional Notes protein needs:90 - 108g (1 - 1 .2 g/kgAdjBW 90.119kg) Fluid needs: 1 ml/kcal or per MD order Nutrition Intervention Change Diet Order: Continue Cardiac Consistent Carbohydrate Diet Goal #1 Meet at least 75% of kcal and protein needs via PO intake Anticipated Discharge Needs: Cardiac Consistent Carbohydrate Diet Revisit per MD consult or patient Sign Off request: Additional Comments S/O for excellent PO intake
[2021-02-06 13:09] VITALS: BP 102/62
== END 2021-02-06 17:02 | disposition home or self-care (01) | DRG 884 ==
LOC: 3A 10:18 → UNDOADMIN 10:18 → 5A 23:06
PROVIDERS: ADMIT Psychiatry & Neurology Psychiatry; ATTEND Psychiatry & Neurology Psychiatry
DX: F01.51 Vascular dementia, unspecified severity, with behavioral disturbance (principal); F31.4 Bipolar disorder, current episode depressed, severe, without psychotic features; F41.1 Generalized anxiety disorder; E78.5 Hyperlipidemia, unspecified; E03.9 Hypothyroidism, unspecified; E66.01 Morbid (severe) obesity due to excess calories; I67.2 Cerebral atherosclerosis; E11.9 Type 2 diabetes mellitus without complications; I10 Essential (primary) hypertension; Z88.6 Allergy status to analgesic agent; Z88.0 Allergy status to penicillin; Z79.899 Other long term (current) drug therapy; Z83.3 Family history of diabetes mellitus; Z82.49 Family history of ischemic heart disease and other diseases of the circulatory system; Z68.31 Body mass index [BMI] 31.0-31.9, adult
CPT/HCPCS: 36415; 80053; 80061; 82962; 83036; 84443; 85025; G0378; Q0177